=== PATIENT | male | born 1965 | race Caucasian/White ===

== ENCOUNTER 2017-03-22 10:35 | Day surgery (SDC) | payer BC ==
[2017-03-22] VITALS (9 sets, daily range): BP systolic 105–121; BP diastolic 78–85
[~2017-03-22] VITALS: Ht 177.8 cm; Wt 84.8 kg
[2017-03-22] MEDS ORDERED: RX-NITROGLYCERIN 0.4 MG TAB BTL 25'S SL ONE (10:36)
[2017-03-22] MEDS ORDERED: ASPIRIN 81 MG CHEW (CHILDREN'S ASA) ONE (10:36)
[2017-03-22 10:51] LABS: BASOPHILS # (AUTO) 0.1 10^3/uL (0.0-0.1); BASOPHILS % (AUTO) 1 % (0-10); EOSINOPHILS # (AUTO) 0.4 10^3/uL (0.0-0.3); EOSINOPHILS % (AUTO) 5 % (0-10); LYMPHOCYTES % (AUTO) 14 % (12-44); MEAN CORPUSCULAR HEMOGLOBIN 31 PG (25-34); MEAN CORPUSCULAR HGB CONC 35 G/DL (32-36); MEAN CORPUSCULAR VOLUME 88 FL (80-99); MEAN PLATELET VOLUME 9.4 FL (7.4-10.4); MONOCYTES # (AUTO) 0.5 X 10^3 (0.0-1.0); MONOCYTES % (AUTO) 8 % (0-12); NEUTROPHILS # (AUTO) 5.1 X 10^3 (1.8-7.8); NEUTROPHILS % (AUTO) 72 % (42-75); PLATELET COUNT 250 10^3/uL (130-400); RED BLOOD COUNT 5.17 10^6/uL (4.35-5.85); RED CELL DISTRIBUTION WIDTH 12.5 % (10.0-14.5)
[2017-03-22] MEDS ORDERED: ASPIRIN 81 MG CHEW (CHILDREN'S ASA) PO ONE (11:00)
[2017-03-22] MEDS ORDERED: RX-NITROGLYCERIN 0.4 MG TAB BTL 25'S SL PRN (11:00)
[2017-03-22 11:02] LABS: INR 1.1 (0.8-1.4); PROTHROMBIN TIME PATIENT 13.6 SEC (12.2-14.7)
[2017-03-22 11:12] LABS: ALANINE AMINOTRANSFERASE 27 U/L (0-55); ALBUMIN 4.4 GM/DL (3.2-4.5); ANION GAP 11 MMOL/L (5-14); ASPARTATE AMINO TRANSFERASE 20 U/L (5-34); BLOOD UREA NITROGEN 10 MG/DL (7-18); BUN/CREATININE RATIO 11; CALCIUM 9.9 MG/DL (8.5-10.1); CARBON DIOXIDE 25 MMOL/L (21-32); CHLORIDE 107 MMOL/L (98-107); CREATININE SERUM 0.93 MG/DL (0.60-1.30); GFR ESTIMATED > 60; GLUCOSE 132 MG/DL (70-105); MAGNESIUM 2.5 MG/DL (1.8-2.4); POTASSIUM 3.7 MMOL/L (3.6-5.0); SODIUM 143 MMOL/L (135-145); TOTAL PROTEIN 7.9 GM/DL (6.4-8.2)
--- NOTE | 2017-03-22 11:14 | Diagnostic Imaging Report ---
INDICATION: Chest pain since last night. TECHNIQUE: Single view chest 11:05 AM. CORRELATION STUDY: None FINDINGS: The heart size, mediastinal configuration and pulmonary vascularity are within normal limits. Minimal atelectasis left lung base. The lungs are otherwise clear with no consolidating infiltrate. There is no significant effusion or pneumothorax. IMPRESSION: 1. No radiographic evidence for acute abnormality of the chest. Dictated by: Dictated on workstation # [id number]
--- NOTE | 2017-03-22 12:15 | ED Chest Pain ---
General Chief Complaint: Chest Pain Stated Complaint: CHEST PAIN Nursing Triage Note: PT CO OF CHEST PAIN SINCE LAST PM, PT STATES HAS HAD SOME NAUSEA, SOA, L ARM PAIN AND BILAT JAW PAIN, PT STATES STARTED ABOUT 1999 LAST PM. PT STATES HAS INTERMITTENTLY HAD PAIN FOR ABOUT 1 MONTH. PT TO MONITOR. O2 ON AT 2L Nursing Sepsis Screen: No Definite Risk Source: patient Exam Limitations: no limitations History of Present Illness Time seen by provider: 10:38 Initial Comments This 52-year-old gentleman presents to emergency room with complaints of chest pain intermittently for about one month. Present episode of chest pain started last night. It is just left of the sternum and is described as a gripping tightness. He rates it as 5/10. Today it was associated with nausea and shortness of air. Pain radiates to the jaw, back, and left arm. It is worse when he is at work. He works as a green promotions specialist. He is a present patient of Dr. Farfan for arrhythmia. He states arrhythmias resolve when he coughs. He has no personal history of coronary artery disease. He had a stress test at Dr. Basilio's office in November of last year that was unremarkable. He does not smoke but has family history of heart disease. Allergies and Home Medications Allergies Coded Allergies: ibuprofen (Verified Allergy, Unknown, 03/22/17) Home Medications Aspirin 81 Mg Tablet., 81 MG PO DAILY, (Reported) Cetirizine HCl 10 Mg Capsule, 10 MG PO DAILY, (Reported) Fish Oil/Dha/Epa 1 Each Capsule, 3 EACH PO HS, (Reported) L.acidoph & Paracasei,B.lactis 1 Each Capsule, 1 EACH PO DAILY, (Reported) Pantoprazole Sodium 40 Mg , 40 MG PO DAILY, #30 Ref 2 Prescribed by: JUDSON BASILIO on 03/22/17 1613 Rosuvastatin Calcium 10 Mg Tablet, 10 MG PO HS, (Reported) Review of Systems Constitutional: no symptoms reported EENTM: No Symptoms Reported Respiratory: See HPI Cardiovascular: See HPI Gastrointestinal: See HPI Genitourinary: No Symptoms Reported Musculoskeletal: no symptoms reported Skin: no symptoms reported Psychiatric/Neurological: No Symptoms Reported Endocrine: No Symptoms Reported Past Jvdnxxy-Ziyjjx-Hhpoxf Hx Patient Social History Alcohol Use: Occasionally Uses Recreational Drug Use: No Smoking Status: Never a Smoker Recent Foreign Travel: No Contact w/Someone Who Travel: No Recent Infectious Disease Expo: No Recent Hopitalizations: No Immunizations Up To Date Date of Influenza Vaccine: Jun 19, 2012 Seasonal Allergies Seasonal Allergies: No Surgeries HX Surgeries: Yes Surgeries: Orthopedic (knee) Respiratory Hx Respiratory Disorders: No Cardiovascular Hx Cardiac Disorders: Yes (arrhythmia) Cardiac Disorders: High Cholesterol Neurological Hx Neurological Disorders: No Reproductive System Hx Reproductive Disorders: No Genitourinary Hx Genitourinary Disorders: No Gastrointestinal Hx Gastrointestinal Disorders: No Musculoskeletal Hx Musculoskeletal Disorders: No Endocrine Hx Endocrine Disorders: No HEENT HX ENT Disorders: No Cancer Hx Cancer: No Psychosocial Hx Psychiatric Problems: No Integumentary HX Skin/Integumentary Disorder: No Blood Transfusions Adverse Reaction to a Blood Tr: No Family Medical History Significant Family History: Heart Disease, Stroke Physical Exam Vital Signs Vital Sign - Last 12Hours Capillary Refill : Less Than 3 Seconds General Appearance: No Apparent Distress, WD/WN HEENT: PERRL/EOMI, Normal ENT Inspection Neck: Normal Inspection Respiratory: Chest Non Tender, Lungs Clear, Normal Breath Sounds, No Accessory Muscle Use, No Respiratory Distress Cardiovascular: Regular Rate, Rhythm, No Edema, No Murmur, Normal Peripheral Pulses Gastrointestinal: Normal Bowel Sounds, Non Tender, Soft Extremity: Normal Inspection, Non Tender, No Calf Tenderness, No Pedal Edema, Other (negative Neil) Neurologic/Psychiatric: Alert, Oriented x3, No Motor/Sensory Deficits, Normal Mood/Affect, fence maker II-XII Norm as Tested Skin: Normal Color, Warm/Dry Progress/Results/Core Measures Results/Orders Lab Results Laboratory Tests Test 03/22/17 10:43 Range/Units White Blood Count 7.0 4.3-11.0 10^3/uL Red Blood Count 5.17 4.35-5.85 10^6/uL Hemoglobin 15.9 13.3-17.7 G/DL Hematocrit 45 40-54 % Mean Corpuscular Volume 88 80-99 FL Mean Corpuscular Hemoglobin 31 25-34 PG Mean Corpuscular Hemoglobin Concent 35 32-36 G/DL Red Cell Distribution Width 12.5 10.0-14.5 % Platelet Count 250 130-400 10^3/uL Mean Platelet Volume 9.4 7.4-10.4 FL Neutrophils (%) (Auto) 72 42-75 % Lymphocytes (%) (Auto) 14 12-44 % Monocytes (%) (Auto) 8 0-12 % Eosinophils (%) (Auto) 5 0-10 % Basophils (%) (Auto) 1 0-10 % Neutrophils # (Auto) 5.1 1.8-7.8 X 10^3 Lymphocytes # (Auto) 1.0 1.0-4.0 X 10^3 Monocytes # (Auto) 0.5 0.0-1.0 X 10^3 Eosinophils # (Auto) 0.4 H 0.0-0.3 10^3/uL Basophils # (Auto) 0.1 0.0-0.1 10^3/uL Prothrombin Time 13.6 12.2-14.7 SEC INR Comment 1.1 0.8-1.4 Activated Partial Thromboplast Time 39 H 24-35 SEC Sodium Level 143 135-145 MMOL/L Potassium Level 3.7 3.6-5.0 MMOL/L Chloride Level 107 98-107 MMOL/L Carbon Dioxide Level 25 21-32 MMOL/L Anion Gap 11 5-14 MMOL/L Blood Urea Nitrogen 10 7-18 MG/DL Creatinine 0.93 0.60-1.30 MG/DL Estimat Glomerular Filtration Rate > 60 BUN/Creatinine Ratio 11 Glucose Level 132 H 70-105 MG/DL Calcium Level 9.9 8.5-10.1 MG/DL Magnesium Level 2.5 H 1.8-2.4 MG/DL Total Bilirubin 1.0 0.1-1.0 MG/DL Aspartate Amino Transf (AST/SGOT) 20 5-34 U/L Alanine Aminotransferase (ALT/SGPT) 27 0-55 U/L Alkaline Phosphatase 60 40-136 U/L Myoglobin 32.0 10.0-92.0 NG/ML Troponin I < 0.30 <0.30 NG/ML Total Protein 7.9 6.4-8.2 GM/DL Albumin 4.4 3.2-4.5 GM/DL My Orders Orders - VIET CALERO MD Cbc With Automated Diff (03/22/17 10:38) Magnesium (03/22/17 10:38) Chest 1 View, Ap/Pa Only (03/22/17 10:38) Ekg Tracing (03/22/17 10:38) Cardiac Profile 1 (03/22/17 10:38) Comprehensive Metabolic Panel (03/22/17 10:38) Myoglobin Serum (03/22/17 10:38) Protime With Inr (03/22/17 10:38) Partial Thromboplastin Time (03/22/17 10:38) O2 (03/22/17 10:38) Monitor-Rhythm Ecg Trace Only (03/22/17 10:38) Saline Lock/Iv-Start (03/22/17 10:38) Aspirin Chewable Tablet (Baby Aspirin Ch (03/22/17 10:36) Rx-Nitroglycerin Sl Tabs (Rx-Nitrostat S (03/22/17 10:36) Aspirin Chewable Tablet (Baby Aspirin Ch (03/22/17 11:00) Rx-Nitroglycerin Sl Tabs (Rx-Nitrostat S (03/22/17 11:00) Medications Given in ED Vital Signs/I&O Vital Sign - Last 12Hours 03/22/17 03/22/17 03/22/17 10:35 10:35 10:35 Temp 97.6 Pulse 72 Resp 12 B/P (MAP) 146/99 Pulse Ox 99 98 O2 Delivery Nasal Cannula Nasal Cannula O2 Flow Rate 2.00 2.00 Blood Pressure Mean: 115 Progress Note #1: Progress Note Chest pain was completely relieved with nitroglycerin 2. Pain started to rebound around noon a. The third nitroglycerin was administered. Workup was unremarkable. Case was reviewed with Dr. Basilio who would like patient kept nothing by mouth until he sees the patient. Dr. Baron was contacted and agrees with admission. Progress Note #2: Time: 13:05 Progress Note Patient has been seen and assessed by Dr. Basilio. Patient will go to [facility] from the ER. ECG Initial ECG Impression Date: Mar 22, 2017 Initial ECG Impression Time: 10:39 Initial ECG Rate: 67 Initial ECG Rhythm: Normal Sinus Initial ECG Intervals: Normal Initial ECG Impression: Normal Comment Normal sinus rhythm with no ST elevation or depression. No abnormal intervals or axis deviation. Diagnostic Imaging Diagonstic Imaging: Xray Plain Films/CT/US/NM/MRI: chest Comments NAME: SHELDON KATZ [facility] REC#: [id number] PT STATUS: REG ER : 1965 PHYSICIAN: VIET CALERO MD ADMIT DATE: 03/22/17/ER Signed Date of Exam: 03/22/17 CHEST 1 VIEW, AP/PA ONLY INDICATION: Chest pain since last night. TECHNIQUE: Single view chest 11:05 AM. CORRELATION STUDY: None FINDINGS: The heart size, mediastinal configuration and pulmonary vascularity are within normal limits. Minimal atelectasis left lung base. The lungs are otherwise clear with no consolidating infiltrate. There is no significant effusion or pneumothorax. IMPRESSION: 1. No radiographic evidence for acute abnormality of the chest. Dictated by: Dictated on workstation # [id number] Dict: 03/22/17 1111 Trans: 03/22/17 1112 Interpreted by: KARRIE EVANS DO Electronically signed by: KARRIE EVANS DO 03/22/17 1112 Departure Communication Time/Spoke to Admitting Phy: 11:[address] Baron Time/Spoke to Consulting Physi: 11:35 Communication/Consulting Dr. Basilio Impression Impression: Primary Impression: Chest pain Qualified Codes: R07.9 - Chest pain, unspecified Disposition: ADMITTED INPATIENT Condition: Improved Departure-Patient Inst. Decision time for Depature: 11:20 Referrals: DONALDO BARON MD (PCP/Family) Primary Care Physician Scripts Pantoprazole Sodium (Protonix) 40 Mg 40 MG PO DAILY, #30 TAB 2 Refills Prov: JUDSON BASILIO MD 03/22/17 VIET CALERO MD Mar 22, 2017 12:15
--- NOTE | 2017-03-22 13:14 | Consultation-Cardiology ---
HPI-Cardiology Cardiology Consultation Date of Consultation 03/22/17 Date of Admission Time Seen by Provider: 13:08 Indication: Chest pain HPI 52 years old gentleman with history of palpitations, has been having recurrent chest pain, described it as heaviness in the central chest radiating to the left side of the chest and left shoulder and arm and jaw, pain has been waxing and waning for the last 2 months, was worse today, woke up with the pain and came to the ER, relieved by nitroglycerine then returned. started another episode of chest pain and jaw pain, patient and are concerned about the pain, has been under stress recently, admit having palpitations, mild shortness of breath, no syncope but has been having dizziness, no edema Home Medications & Allergies Allergies: Coded Allergies: ibuprofen (Verified Allergy, 07/15/12) Home Medication List Reviewed: Yes YIX-[id number]-Zatdpd Hx Patient Social History Marital Status: Employed/Student: employed Alcohol Use: Occasionally Uses Recreational Drug Use: No Smoking Status: Never a Smoker Recent Foreign Travel: No Recent Infectious Disease Expo: No Recent Hopitalizations: No Immunizations Up To Date Date of Influenza Vaccine: Jun 19, 2012 Past Medical History Past history is discussed below Family Medical History Significant Family History: Heart Disease Family Medical Hx strong family history of coronary artery disease and arrhythmia Constitutional: see HPI, dizziness EENTM: no symptoms reported, see HPI Respiratory: see HPI, No cough, No dyspnea on exertion, No hemoptysis, No orthopnea, No phlegm, short of breath, No stridor, No wheezing, No other Cardiovascular: see HPI, chest pain, No edema, No Hx of Intervention, palpitations, No syncope, No vascular heart diseas, No other Gastrointestinal: no symptoms reported, see HPI Genitourinary: no symptoms reported, see HPI Musculoskeletal: no symptoms reported, see HPI Skin: no symptoms reported, see HPI Psychiatric/Neurological: No Symptoms Reported, See HPI Reviewed Test Results Reviewed Test Results Lab Laboratory Tests Test 03/22/17 10:43 Range/Units White Blood Count 7.0 4.3-11.0 10^3/uL Red Blood Count 5.17 4.35-5.85 10^6/uL Hemoglobin 15.9 13.3-17.7 G/DL Hematocrit 45 40-54 % Mean Corpuscular Volume 88 80-99 FL Mean Corpuscular Hemoglobin 31 25-34 PG Mean Corpuscular Hemoglobin Concent 35 32-36 G/DL Red Cell Distribution Width 12.5 10.0-14.5 % Platelet Count 250 130-400 10^3/uL Mean Platelet Volume 9.4 7.4-10.4 FL Neutrophils (%) (Auto) 72 42-75 % Lymphocytes (%) (Auto) 14 12-44 % Monocytes (%) (Auto) 8 0-12 % Eosinophils (%) (Auto) 5 0-10 % Basophils (%) (Auto) 1 0-10 % Neutrophils # (Auto) 5.1 1.8-7.8 X 10^3 Lymphocytes # (Auto) 1.0 1.0-4.0 X 10^3 Monocytes # (Auto) 0.5 0.0-1.0 X 10^3 Eosinophils # (Auto) 0.4 H 0.0-0.3 10^3/uL Basophils # (Auto) 0.1 0.0-0.1 10^3/uL Prothrombin Time 13.6 12.2-14.7 SEC INR Comment 1.1 0.8-1.4 Activated Partial Thromboplast Time 39 H 24-35 SEC Sodium Level 143 135-145 MMOL/L Potassium Level 3.7 3.6-5.0 MMOL/L Chloride Level 107 98-107 MMOL/L Carbon Dioxide Level 25 21-32 MMOL/L Anion Gap 11 5-14 MMOL/L Blood Urea Nitrogen 10 7-18 MG/DL Creatinine 0.93 0.60-1.30 MG/DL Estimat Glomerular Filtration Rate > 60 BUN/Creatinine Ratio 11 Glucose Level 132 H 70-105 MG/DL Calcium Level 9.9 8.5-10.1 MG/DL Magnesium Level 2.5 H 1.8-2.4 MG/DL Total Bilirubin 1.0 0.1-1.0 MG/DL Aspartate Amino Transf (AST/SGOT) 20 5-34 U/L Alanine Aminotransferase (ALT/SGPT) 27 0-55 U/L Alkaline Phosphatase 60 40-136 U/L Myoglobin 32.0 10.0-92.0 NG/ML Troponin I < 0.30 <0.30 NG/ML Total Protein 7.9 6.4-8.2 GM/DL Albumin 4.4 3.2-4.5 GM/DL Physical Exam Vital Signs Vital Sign - Last 12Hours Capillary Refill : Less Than 3 Seconds General Appearance: No Apparent Distress, WD/WN Eyes: Bilateral Eye EOMI, Bilateral Eye Normal Inspection, Bilateral Eye PERRL HEENT: PERRL/EOMI, TMs Normal, Normal ENT Inspection, Pharynx Normal Neck: Full Range of Motion, Normal Inspection, Non Tender, Supple, Carotid Bruit Respiratory: Chest Non Tender, Lungs Clear, Normal Breath Sounds, No Accessory Muscle Use, No Respiratory Distress Cardiovascular: Regular Rate, Rhythm, No Edema, No Gallop, No JVD, No Murmur, Normal Peripheral Pulses Gastrointestinal: Normal Bowel Sounds, No Organomegaly, No Pulsatile Mass, Non Tender, Soft Back: Normal Inspection, No CVA Tenderness, No Vertebral Tenderness Extremity: Normal Capillary Refill, Normal Inspection, Normal Range of Motion, Non Tender, No Calf Tenderness, No Pedal Edema Neurologic/Psychiatric: Alert, Oriented x3, No Motor/Sensory Deficits, Normal Mood/Affect Skin: Normal Color, Warm/Dry Lymphatic: No Adenopathy A/P-Cardiology Admission Diagnosis Chest pain Palpitations Hyperlipidemia Family history of atherosclerosis Assessment/Plan Chest pain, resembling angina, waxing and waning, responded to nitroglycerine then started having another episode of chest pain, discussed the management plan , possibility of stress test vs cardiac cath, all pros and cons discussed, patient prefer a cardiac cath done due to the recurrent chest pain for the past 2 months and chest pain at rest Recurrent palpitation, usually improving after taking a deep breath, chronic, continue to monitor History of basal cell carcinoma removed from the eyelid in 2012, squamous cell carcinoma of the neck Family history of heart disease father of heart attack in his 60s, had history of carotid stenosis Hyperlipidemia, well controlled, however complaining of joint pain with Lipitor use. Will d/c Lipitor. Tolerating Crestor better Nonobstructive carotid artery stenosis per duplex done November 2015. Continue to monitor. Clinical Quality Measures AMI/AHF: ASA po Prior to arrival: JUDSON Guerrier MD Mar 22, 2017 13:14
--- NOTE | 2017-03-22 13:22 | Cardiac Procedure Note-CS/ASA ---
Pre-Procedure Note Pre-Op Procedure Note H&P Reviewed The H&P was reviewed, patient examined and no changes noted. Date H&P Reviewed: Mar 22, 2017 Time H&P Reviewed: 13:22 Conscious Sedation Pre-Proced Time Reviewed: :22 ASA Class: 3 Airway Mallampati Classification: (rampart appropriate class) I. II. III, IV Lungs Heart ASA score ASA 1: a normal healthy patient ASA 2: a patient with a mild systemic disease (mid diabetes, controlled hypertension, obesity x ASA 3: a patient with a severe systemic disease that limits activity (angina , COPD, prior Myocardial infarction) ASA 4: a patient with an incapacitating disease that is a constant threat to life (CHF, renal failure) ASA 5: a moribund patient not expected to survive 24 hrs. (ruptured aneurysm) ASA 6: a declared brain patient whose organs are being harvested. For emergent operations, add the letter E after the classification Grade 3 Sedation Plan: Analgesia, Amnesia, Plan communicated to team members, Discussed options with patient/fam, Discussed risks with patient/fam Note The patient is an appropriate candidate to undergo the planned procedure, sedation, and anesthesia. The patient immediately re-assessed prior to indication. JUDSON RIOJAS MD Mar 22, 2017 13:22
[2017-03-22] MEDS ORDERED: NS IV 1000 ML 1,000 ML ONE (13:39)
[2017-03-22] MEDS ORDERED: HEParin (CATH LAB) 2,000 ML IV ONE (13:39)
[2017-03-22] MEDS ORDERED: MIDAZOLAM 5 MG/5 ML (VERSED) VIAL ONE (13:41)
[2017-03-22] MEDS ORDERED: HEParin 1000 UNIT/ML (10ML VIAL) FOR BOLUS ONE (13:41)
[2017-03-22] MEDS ORDERED: fentaNYL INJECTION 100 MCG/2 ML AMP ONE (13:41)
[2017-03-22] MEDS ORDERED: NITROGLYCERIN DRIP 25 MG/D5W 0 ML IV ONE (13:41)
[2017-03-22] MEDS ORDERED: NS IV 1000 ML 1,000 ML IV SCH ×2 (14:15→14:26)
--- NOTE | 2017-03-22 14:25 | Cardiac Cath Report ---
Cardiac Cath Report Physician (s)/Supervisor Lead Burning (s) Physician JUDSON RIOJAS MD Pre-Procedure Diagnosis Pre-Procedure Diagnosis: chest pain Post-Procedure Note Procedure Start Date: Mar 22, 2017 Procedure Start Time: 14:00 Name of Procedure: left heart catheter, LV gram, aortic arch angiogram Findings/Procedure Note PROCEDURE NOTE: After explaining the procedure to the patient, all pros and cons were explained, all questions were answered. The patient signed the consent and then he was placed on the cardiac catheterization laboratory. FINDINGS: The patient was placed on the cardiac catheterization laboratory right groin was prepped SL fashion local anesthesia. 6 Ukrainian sheath in the right femoral artery, Anselmo right and left catheter were used to access the coronary system , date advanced to the left ventricular cavity, left ventricular gram was done, pullback LV to aorta, no gradient was noted, aortic arch angiogram was done. At the end of the procedure Mynx deployed, no complication noted Anatomy LM is normal LAD is small, no obstructive disease, slow flow Left circumflex is normal, no obstructive disease RCA is dominant, normal no obstructive disease LV gram is normal, ejection fraction 65 percent, normal LVEDP Aortic arch angiogram is normal, no dissection or aneurysm, origin of the great neck vessels appeared normal Hemodynamics LV 93/9 LVEDP 9 Aorta 98/63 mean of 75 Conclusion 1. Normal coronary system, slightly slower flow in the left system probably due to small vessel disease and spasm 2. Normal LV size and function, ejection fraction 65 percent 3. Normal aortic arch and great neck vessels DISCUSSION AND RECOMMENDATION: patient has been having chest pain, probably due to coronary spasm, conservative management is recommended, medical therapy, patient will be discharged home and follow-up as an outpatient. He was started on PPI in addition to aspirin Anesthesia Type: Conscious Sedation Estimated blood loss (mL): 20 Contrast Amount: 72 Total Radiation Dose: 40 mGy Post-Procedure Diagnosis Post-operative diagnosis: Chest pain, anterior chest wall pain Coronary artery disease Palpitation Hyperlipidemia JUDSON RIOJAS MD Mar 22, 2017 14:25
--- NOTE | 2017-03-22 14:26 | Clinic Account Progress/Dx ---
Clinic Account Progress/Dx DIAGNOSIS: Date Seen by Provider: Mar 22, 2017 Time Seen by Provider: 14:26 Diagnosis Chest pain, anterior chest wall pain Coronary artery disease Palpitation Hyperlipidemia JUDSON RIOJAS MD Mar 22, 2017 14:26
[2017-03-22] MEDS ORDERED: PATIENT MAY USE OWN MEDS, ALL PO SCH (14:30)
--- NOTE | 2017-03-22 14:36 | Discharge Inst-Post CATH ---
Discharge Inst-CATH Post Cardiac Cath D/C Inst Follow Up/Plan Appointment with Dr. Baron's office next week Appointment with Dr. Riojas's office in 2-4 weeks CARDIAC CATH DISCHARGE INSTRUCTIONS *Hold Metformin for 48 hours post heart cath. ACTIVITY * Go Home directly and rest. * Limit activity of the leg (or wrist if it was used) for 7 days including aerobics, swimming, jogging, bicycling, etc. * Restrict stair-climbing for 7 days if possible, if not, climb up with your non -cath leg, then bring together on the same step. * Avoid lifting, pushing, pulling or excessive movement of the affected extremity for 7 days. * Customary sexual activity may be resumed after 2 days-use caution not to use a position that strains or causes pain to the affected extremity. * No driving for 24 hours. * NO SMOKING. * Avoid straining for bowel movements for 7 days. * Gentle walking on level ground is allowed. * Returning to work will depend on the type of procedure and the results. Your doctor will discuss this with you. CALL YOUR DOCTOR FOR ANY OF THE FOLLOWING: *If bleeding from the puncture site occurs- Apply gentle pressure to site with clean cloth and call your doctor or EMS. * If a knot or lump forms under the skin, increases in size, or causes pain. * If bruising appears to be worsening or moving further down your leg instead of disappearing. * Temperature above 101 F. CARE OF YOUR GROIN INCISION; * Bruising or purple discoloration of the skin near the puncture site is common. * You may shower only, no bathtub bathing for 5 days. Be careful to avoid slipping as your leg may feel stiff. * If a closure device was used on your femoral artery, please see the attached guide regarding care of the device and your leg. * REMOVE the dressing from your groin the next day after your procedure in the shower. CARE OF YOUR WRIST INCISION; * Bruising or purple discoloration of the skin near the puncture site is common. * You may shower. * DO NOT submerge wrist. * Remove dressing in 24 hours. JUDSON RIOJAS MD Mar 22, 2017 14:36
[2017-03-22] MEDS ORDERED: CETI10CA PO (14:56)
[2017-03-22] MEDS ORDERED: FISH1CAP15 PO (14:56)
[2017-03-22] MEDS ORDERED: ROSU10TA PO (14:56)
[2017-03-22] MEDS ORDERED: L.AC1CAP6 PO (14:56)
[2017-03-22] MEDS ORDERED: ASPI-983 PO (14:56)
[2017-03-22] MEDS ORDERED: PANT40SU PO (16:13)
[2017-03-22] MEDS ORDERED: PANTOPRAZOLE 40 MG (PROTONIX) TAB PO ONE (16:15)
--- NOTE | 2017-03-22 16:19 | Short Stay Summary ---
History of Present Illness History of Present Illness Reason for visit/HPI 52 years old gentleman with history of palpitations, has been having recurrent chest pain, described it as heaviness in the central chest radiating to the left side of the chest and left shoulder and arm and jaw, pain has been waxing and waning for the last 2 months, was worse today, woke up with the pain and came to the ER, relieved by nitroglycerine then returned. started another episode of chest pain and jaw pain, patient and are concerned about the pain, has been under stress recently, admit having palpitations, mild shortness of breath, no syncope but has been having dizziness, no edema Date of Admission 03/22/17 Date of Discharge 03/22/17 Time Seen by Provider: 16:15 Attending Physician Judson Basilio MD Admitting Physician Merle Baron MD Consult Allergies and Home Medications Allergies Coded Allergies: ibuprofen (Verified Allergy, Unknown, 03/22/17) Home Medications Aspirin 81 Mg Tablet.dr, 81 MG PO DAILY, (Reported) Cetirizine HCl 10 Mg Capsule, 10 MG PO DAILY, (Reported) Fish Oil/Dha/Epa 1 Each Capsule, 3 EACH PO HS, (Reported) L.acidoph & Paracasei,B.lactis 1 Each Capsule, 1 EACH PO DAILY, (Reported) Pantoprazole Sodium 40 Mg Granpkt.dr, 40 MG PO DAILY, #30 Ref 2 Prescribed by: JUDSON BASILIO on 03/22/17 1613 Rosuvastatin Calcium 10 Mg Tablet, 10 MG PO HS, (Reported) Past Rkayhnv-Twgnkh-Dtojza Hx Patient Social History Marrital Status: Employed/Student: employed Alcohol Use: Occasionally Uses Recreational Drug Use: No Smoking Status: Never a Smoker Recent Foreign Travel: No Contact w/other who traveled: Yes Recent Hopitalizations: No Recent Infectious Disease Expo: No Immunizations Up To Date Date of Influenza Vaccine: Jun 19, 2012 Seasonal Allergies Seasonal Allergies: No Surgeries HX Surgeries: Yes Surgeries: Orthopedic (knee) Respiratory Hx Respiratory Disorders: No Cardiovascular Hx Cardiovascular Disorders: Yes (arrhythmia) Cardiac Disorders: High Cholesterol Neurological Hx Neurological Disorders: No Reproductive System Hx Reproductive Disorders: No Genitourinary Hx Genitourinary Disorders: No Gastrointestinal Hx Gastrointestinal Disorders: No Musculoskeletal Hx Musculoskeletal Disorders: No Endocrine Hx Endocrine Disorders: No HEENT HX ENT Disorders: No Cancer Hx Cancer: No Psychosocial Hx Psychiatric Problems: No Integumentary HX Skin/Integumentary Disorder: No Blood Transfusions Adverse Reaction to a Blood Tr: No Family Medical History Significant Family History: Heart Disease Constitutional: see HPI, dizziness EENTM: see HPI Respiratory: see HPI, dyspnea on exertion, short of breath Cardiovascular: see HPI, chest pain Gastrointestinal: see HPI Genitourinary: see HPI Musculoskeletal: see HPI Skin: see HPI Psychiatric/Neurological: No Symptoms Reported, See HPI Physical Exam Vital Signs Vital Sign - Last 12Hours Capillary Refill : Less Than 3 Seconds General Appearance: No Apparent Distress, WD/WN Eyes: Bilateral Eye EOMI, Bilateral Eye Normal Inspection, Bilateral Eye PERRL HEENT: PERRL/EOMI, TMs Normal, Normal ENT Inspection, Pharynx Normal Neck: Full Range of Motion, Normal Inspection, Non Tender, Supple, Carotid Bruit Respiratory: Chest Non Tender, Lungs Clear, Normal Breath Sounds, No Accessory Muscle Use, No Respiratory Distress Cardiovascular: Regular Rate, Rhythm, No Edema, No Gallop, No JVD, No Murmur, Normal Peripheral Pulses Gastrointestinal: Normal Bowel Sounds, No Organomegaly, No Pulsatile Mass, Non Tender, Soft Back: Normal Inspection, No CVA Tenderness, No Vertebral Tenderness Extremity: Normal Capillary Refill, Normal Inspection, Normal Range of Motion, Non Tender, No Calf Tenderness, No Pedal Edema Neurologic/Psychiatric: Alert, Oriented x3, No Motor/Sensory Deficits, Normal Mood/Affect Skin: Normal Color, Warm/Dry Lymphatic: No Adenopathy Clinical Quality Measures AMI/AHF: ASA po Prior to arrival: No Short Stay Diagnosis Discharge Diagnosis-Short Stay Admission Diagnosis: Chest pain, anterior chest wall pain Coronary artery disease Palpitation Hyperlipidemia Final Discharge Diagnosis: Chest pain, anterior chest wall pain Coronary artery disease Palpitation Hyperlipidemia Conclusion Labs Laboratory Tests 03/22/17 10:43: White Blood Count 7.0, Red Blood Count 5.17, Hemoglobin 15.9, Hematocrit 45, Mean Corpuscular Volume 88, Mean Corpuscular Hemoglobin 31, Mean Corpuscular Hemoglobin Concent 35, Red Cell Distribution Width 12.5, Platelet Count 250, Mean Platelet Volume 9.4, Neutrophils (%) (Auto) 72, Lymphocytes (%) (Auto) 14, Monocytes (%) (Auto) 8, Eosinophils (%) (Auto) 5, Basophils (%) (Auto) 1, Neutrophils # (Auto) 5.1, Lymphocytes # (Auto) 1.0, Monocytes # (Auto) 0.5, Eosinophils # (Auto) 0.4H, Basophils # (Auto) 0.1, Prothrombin Time 13.6, INR Comment 1.1, Activated Partial Thromboplast Time 39H, Sodium Level 143, Potassium Level 3.7, Chloride Level 107, Carbon Dioxide Level 25, Anion Gap 11, Blood Urea Nitrogen 10, Creatinine 0.93, Estimat Glomerular Filtration Rate > 60 , BUN/Creatinine Ratio 11, Glucose Level 132H, Calcium Level 9.9, Magnesium Level 2.5H, Total Bilirubin 1.0, Aspartate Amino Transf (AST/SGOT) 20, Alanine Aminotransferase (ALT/SGPT) 27, Alkaline Phosphatase 60, Myoglobin 32.0, Troponin I < 0.30, Total Protein 7.9, Albumin 4.4 Conclusion/Plan Chest pain, resembling angina, waxing and waning, responded to nitroglycerine then started having another episode of chest pain, discussed the management plan , possibility of stress test vs cardiac cath, all pros and cons discussed, patient prefer a cardiac cath done due to the recurrent chest pain for the past 2 months and chest pain at rest Recurrent palpitation, usually improving after taking a deep breath, chronic, continue to monitor History of basal cell carcinoma removed from the eyelid in 2012, squamous cell carcinoma of the neck Family history of heart disease father of heart attack in his 60s, had history of carotid stenosis Hyperlipidemia, well controlled, however complaining of joint pain with Lipitor use. Will d/c Lipitor. Tolerating Crestor better Nonobstructive carotid artery stenosis per duplex done November 2015. Continue to monitor. Addendum Cath done showing mild CAD, nonobstructive disease, will discharge today JUDSON BASILIO MD Mar 22, 2017 16:19
--- OUTSIDE RECORDS SUMMARY | 2017-03-23 15:52 | XMS REPORT | Continuity of Care Document ---
Author Author [facility] Organization [facility] Address Unknown Phone Unavailable Care Team Providers Care Day Camp Unit Leader Name Role Phone [place], Merle Joaquim PCP [phone] Source Comments Some departments are not documenting in the electronic medical record. If you do not see the information that you expected, contact Release of Information in the Health Information Management department at [phone] for further assistance in locating additional records.[facility] Active Allergies and Adverse Reactions Allergen Noted Date Severity Reactions Comments Ibuprofen 05/07/2013 EYE IRRITATION Swollen eyes Current Medications Prescription Sig. Disp. Refills Start End Date Status Date vitamins, multiple cap Take 1 Cap by mouth Active daily. glucosamine(+) 500 mg Tab Take 500 mg by mouth Active three times daily with meals. fish oil /omega-3 fatty Take 1 Cap by mouth Active acids (SEA-OMEGA) daily. 340/1000 mg capsule aspirin EC 81 mg tablet Take 81 mg by mouth Active daily. vitamins, B complex Tab Take 1 Tab by mouth Active daily. fluorouracil (EFUDEX) 5 % Apply to affected area 25 g 3 05/07/20 Active topical cream twice daily. Wait 1 week [address] freezing before beginning regimen. Follow directions given by MD. 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 Pulse 98 09/26/2013 9:13 AM P[employer]P PLANT SUPERVISOR Temperature - - Respiratory Rate 15 09/26/2013 9:13 AM PULP PLANT SUPERVISOR Height 1.765 m (5' 9.5") 09/26/2013 9:13 AM P[employer]P PLANT SUPERVISOR Weight 87.816 kg (193 lb 9.6 oz) 09/26/2013 9:13 AM [employer] PL[employer] SUPERVISOR Body Mass Index 28.19 09/26/2013 9:13 AM P[employer] PL[employer] SUPERVISOR Oxygen Saturation - - Plan of Care Health Maintenance Due Date Last Done Comments Hepatitis C Screening 1965 Physical (Comprehensive) 02/26/1971 Exam Pertussis Vaccine 02/26/1975 Tetanus Vaccine 02/26/1981 Colorectal Cancer 02/26/2014 Screening Influenza Vaccine 05/20/2017 Results from Last 3 Months Not on file
--- OUTSIDE RECORDS SUMMARY | 2017-03-23 15:57 | XMS REPORT | Continuity of Care Document ---
Author Author [facility] Organization [facility] Address Unknown Phone Unavailable Care Team Providers Care Buyer Tobacco Head Name Role Phone [place], Merle Joaquim PCP [phone] Source Comments Some departments are not documenting in the electronic medical record. 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
--- OUTSIDE RECORDS SUMMARY | 2017-03-23 16:02 | XMS REPORT | Continuity of Care Document ---
Author Author [facility] Organization [facility] Address Unknown Phone Unavailable Care Team Providers Care Central Service Supply Distributor Name Role Phone [place], Merle Joaquim PCP [phone] Source Comments Some departments are not documenting in the electronic medical record. If you do not see the information that you expected, contact Release of Information in the Health Information Management department at [phone] for further assistance in locating additional records.[facility] Active Allergies and Adverse Reactions Allergen Noted [...] Taken Blood Pressure 120/74 09/26/2013 9:13 AM REGISTERED NURSE SUPERVISOR Pulse 98 09/26/2013 9:13 AM REGISTERED NURSE SUPERVISOR Temperature - - Respiratory Rate 15 09/26/2013 9:13 AM REGISTERED NURSE SUPERVISOR Height 1.765 m (5' 9.5") 09/26/2013 9:13 AM REGISTERED NURSE SUPERVISOR Weight 87.816 kg (193 lb 9.6 oz) 09/26/2013 9:13 AM REGISTERED NURSE SUPERVISOR Body Mass Index 28.19 09/26/2013 9:13 AM REGISTERED NURSE SUPERVISOR Oxygen Saturation - - Plan of Care Health Maintenance Due Date Last Done Comments Hepatitis C Screening 1965 Physical (Comprehensive) 02/26/1971 Exam Pertussis Vaccine 02/26/1975 Tetanus Vaccine 02/26/1981 Colorectal Cancer 02/26/2014 Screening Influenza Vaccine 05/20/2017 Results from Last 3 Months Not on file
== END 2017-03-22 18:55 | disposition home or self-care (01) ==
LOC: EDUNIT# 10:35 → EEVIPCON 10:37 → ER 10:37 → CATH 12:05 → ICU 12:05 → UNDOADMOB 12:05 → CATH 18:55
PROVIDERS: ATTEND Internal Medicine Cardiovascular Disease
DX: Z79.899 Other long term (current) drug therapy; E78.5 Hyperlipidemia, unspecified; R00.2 Palpitations; R07.89 Other chest pain; I25.10 Atherosclerotic heart disease of native coronary artery without angina pectoris
CPT/HCPCS: 36221; 36415; 71010; 80053; 83735; 83874; 84484; 85025; 85610; 85730; 93005; 93041; 93458

== ENCOUNTER 2017-04-19 14:48 | Outpatient (RCR) | payer BC ==
[~2017-04-19 14:48] MED LIST: ASPI-983 PO; CETI10CA PO; FISH1CAP15 PO; L.AC1CAP6 PO; PANT40SU PO; ROSU10TA PO
== END 2017-06-18 | disposition home or self-care (01) ==
LOC: CARD 14:48
PROVIDERS: ATTEND Physician Assistant
DX: Z82.49 Family history of ischemic heart disease and other diseases of the circulatory system; C44.91 Basal cell carcinoma of skin, unspecified; R00.2 Palpitations; E78.2 Mixed hyperlipidemia
CPT/HCPCS: 93225; 93226

== ENCOUNTER → 2022-12-08 | Outpatient (CLI) | payer BC, OTHER ==
[~2022-12-08] MED LIST changes: +ASPI-1238 PO; -ASPI-983 PO; +NF-CRES10T PO; -ROSU10TA PO
[2022-12-08 10:03] VITALS: BP 122/84
--- NOTE | 2022-12-08 15:29 | Cardiology Stress Test Report ---
Stress Test Report Date of Procedure/Referring: Date of Procedure: Dec 08, 2022 PCP Donaldo Baron MD Admitting Physician Admitting Physician: Attending Physician: Nati Basilio MD Indications: Palpitation Baseline Heart Rate: 59 Baseline Blood Pressure: Blood Pressure Systolic: 122 Blood Pressure Diastolic: 84 Baseline EKG: Baseline EKG: NSR Summary/Conclusion: Summary: In summary, the patient started exercising with a baseline heart rate, blood pressure and EKG mentioned above Patient was able to exercise for a total of 10 minutes on Sarthak protocol, METs 11.7 Maximum heart rate 155 Maximum blood pressure 189/61 Stress EKG, Minimal nondiagnostic changes Recovery EKG , Return to baseline Conclusion: 1. Good exercise tolerance for a total of 10 minutes on Sarthak protocol, 11.7 METs, achieving 95 percent of maximum expected heart rate 2. Minimal nondiagnostic EKG changes with exercise returned to baseline during recovery 3. No arrhythmia was noted Copy Copies To 1: DONALDO BARON MD, BASHAR J MD Dec 08, 2022 15:29
== END ==
LOC: CARD 08:34
PROVIDERS: ATTEND Internal Medicine Cardiovascular Disease
DX: I51.7 Cardiomegaly (principal)
CPT/HCPCS: 93017; 93306

== ENCOUNTER → 2023-08-18 | Outpatient (CLI) | payer BC ==
[2023-08-18 12:36] LABS: ABSOLUTE RETIC # 70 10e9/uL (24-90); BASOPHILS # (AUTO) 0.1 10^3/uL (0.0-0.1); BASOPHILS % (AUTO) 1 % (0-10); EOSINOPHILS # (AUTO) 1.4 10^3/uL (0.0-0.3); HEMATOCRIT 45 % (40-54); HEMOGLOBIN 15.2 g/dL (13.3-17.7); LYMPHOCYTES # (AUTO) 1.9 10^3/uL (1.0-4.0); LYMPHOCYTES % (AUTO) 24 % (12-44); MEAN CORPUSCULAR HEMOGLOBIN 31 pg (25-34); MEAN CORPUSCULAR HGB CONC 34 g/dL (32-36); MEAN CORPUSCULAR VOLUME 91 fL (80-99); MONOCYTES # (AUTO) 0.6 10^3/uL (0.0-1.0); MONOCYTES % (AUTO) 7 % (0-12); NEUTROPHILS % (AUTO) 50 % (42-75); PLATELET COUNT 225 10^3/uL (130-400); RETICULOCYTE % 1.42 % (0.50-2.40)
[2023-08-18 13:23] LABS: EOSINOPHILS % (AUTO) 18 % (0-10)
[2023-08-18 13:24] LABS: BASOPHILS % (MANUAL) 1 %; EOSINOPHILS % (MANUAL) 15 %; LYMPHOCYTES % (MANUAL) 29 %; MONOCYTES % (MANUAL) 5 %; NEUTROPHILS % (MANUAL) 49 %
[2023-08-18 13:25] LABS: ATYPICAL LYMPHOCYTES 1 %; RBC MORPH NORMAL
== END ==
LOC: LAB 12:23
PROVIDERS: ATTEND Nurse Practitioner Family
DX: D72.10 Eosinophilia, unspecified (principal)
CPT/HCPCS: 36415; 85007; 85027; 85045; 85055